=== PATIENT | male | born 1975 | race Caucasian/White ===

== ENCOUNTER → 2019-06-08 13:09 | Outpatient (CLI) | payer BC, SELFPAY ==
--- NOTE | ~2019-06-08 | MR_ITS ---
EXAMINATION: MR lumbar spine wo/w con EXAM DATE: 06/08/2019 14:06 INDICATION: Chronic left-sided low back pain. TECHNIQUE: Multi-sequential, multiplanar MR images of the lumbar spine were obtained without contrast . Sagittal T1, T2, T2 fat saturation images. Axial T2 weighted images. Axial T1 weighted sequence. Patient was then injected with 19 mL Multihance intravenous contrast and reimaged. Postcontrast axi al and sagittal T1-weighted fat saturation sequences were obtained. Comparison is made to prior exam ination from 08/20/2018. FINDINGS: Anterior fusion hardware L5-S1. There is moderate disc disease L4-5 with 5 mm anterolisthes is at this level. The vertebral bodies are otherwise aligned. Mild to moderate disc disease at L3-4 and mild at L1-2 and L2-3. The conus medullaris terminates at the T12-L1 level and has normal signal intensity and morphology. There are no suspicious marrow signal abnormalities. Paraspinal soft tissu e is unremarkable. There are no areas of abnormal enhancement on the post contrast images. Level by level evaluation: T12-L1: Disc does not extend beyond the endplate margin. Facet arthropathy: Mild. Neural foraminal stenosis: No stenosis. Central canal stenosis: No stenosis. L1-2: There is a mild diffuse disc bulge. Facet arthropathy: Mild. Neural foraminal stenosis: Mild bilateral. Central canal stenosis: Mild. L2-3: There is a mild diffuse disc bulge. Facet arthropathy: Mild. Neural foraminal stenosis: Mild to moderate left, mild right. Central canal stenosis: Mild. L3-4: There is a moderate diffuse disc bulge. Facet arthropathy: Mild to moderate. Neural foraminal stenosis: Mild to moderate bilateral. Central canal stenosis: Moderate. L4-5: There is a large diffuse disc bulge. Facet arthropathy: Mild to moderate. Neural foraminal stenosis: Moderate bilateral. Central canal stenosis: Moderate. L5-S1: This level is fused. Facet arthropathy: Mild. Neural foraminal stenosis: Mild bilateral. Central canal stenosis: No stenosis. Mild interval progression in lumbar spondylosis, stenosis at L4-5 and other lumbar levels. IMPRESSION: 1. Anterior fusion L5-S1. 2. L4-5 moderate lumbar spondylosis, loss of other lumbar levels. Reviewed, dictated and finalized at location B. [employer]IST
[2019-06-08 13:50] LABS: Blood Urea Nitrogen 22 mg/dL (8-26); Estimated Glomerular Filt Rate > 60
== END ==
PROVIDERS: PCP Internal Medicine; Visit Provider Physician Assistant
DX: M47.896 Other spondylosis, lumbar region (principal); Z98.1 Arthrodesis status
CPT/HCPCS: 72158; A9577